=== PATIENT | male | born 1965 | race Caucasian/White ===

== ENCOUNTER 2017-05-28 07:35 | Outpatient (CLI) | payer OTHER ==
[2017-05-28] MEDS ORDERED: Iopamidol 370 76% 100 ML VIAL ONE (09:00)
--- NOTE | 2017-05-28 12:28 | CT ---
CT OF CHEST PERFORMED WITH INTRAVENOUS CONTRAST ENHANCEMENT CT OF ABDOMEN AND PELVIS PERFORMED WITH INTRAVENOUS CONTRAST ENHANCEMENT: History: Rectal cancer. History of colon resection and partial resection of the liver. Comparison: 11-25-16 CT examination that was done at [facility]. Review is also made of a 08-15-14 PE T scan. FINDINGS: The lungs are clear of any infiltrative process. A left lower lobe pulmonary nodule seen on the previ ous examination is now a barely perceptible area of ground glass opacity. There are no pleural effusi ons. There is no significant mediastinal or hilar lymphadenopathy. CT OF ABDOMEN PERFORMED WITH INTRAVENOUS CONTRAST ENHANCEMENT: There has been interval improvement in the appearance of the liver masses. The patient has had resect ion of a large portion of the right lobe of the liver. There are masses within the residual liver par enchyma which definitely show a decrease in size. One of the best examples of this lesion is along th e margin of the resection a lesion measured approximately 3 cm in size now measures 1.4 cm in greates t dimension. Two low attenuation areas of mass-like areas, one within the region of the falciform lig ament and one adjacent to the resected portion of the liver are again noted. They have central areas of nodularity which appears to be at least a portion of calcification. There could be some enhancemen t. No noncontrast CT was performed. The area adjacent to the resection is significantly smaller. It m easured 3 cm on the prior exam and now measures 1.8 cm. The area in the falciform ligament region is unchanged. Addition lesion which was seen in the lateral segment of the left lobe of the liver is bar alessio even perceptible on today's study where it measured 2 cm in size on the prior examination, barely perceptible low attenuation area on axial image 57 is now seen. The spleen is enlarged. Pancreas reg ion appears unremarkable. Gallbladder appears to have been removed. Right and left adrenal glands and right and left kidneys are normal in size. There are small subcenti meter periaortic lymph nodes, not significantly changed since the prior examination. Post-operative c hanges are seen along the right side of the abdomen. There is no significant pelvic lymphadenopathy o r mass. The prostate is enlarged. Review of osseous structures showed no lytic or blastic bony change. IMPRESSION: Overall interval improvement. A left lower lobe pulmonary nodule seen on the prior examination is ba rely perceptible and the liver lesions show a definite decrease in size as compared to the prior exam . POS: H
== END 2017-05-28 07:36 | disposition home or self-care (01) ==
LOC: SCSCT 07:35
PROVIDERS: ATTEND Internal Medicine Hematology & Oncology
DX: C19 Malignant neoplasm of rectosigmoid junction (principal); C78.00 Secondary malignant neoplasm of unspecified lung; C22.9 Malignant neoplasm of liver, not specified as primary or secondary; R91.8 Other nonspecific abnormal finding of lung field
CPT/HCPCS: 71260; 74177

== ENCOUNTER 2017-06-09 19:36 | Inpatient (IN) | payer OTHER ==
[2017-06-09] MEDS ORDERED: Ondansetron PF 4 MG/2 ML Vial ONE (20:03)
--- NOTE | 2017-06-09 20:30 | RAD ---
FRONTAL RADIOGRAPH CHEST TWO VIEWS ABDOMEN 06/09/17 COMPARISON: 09/27/15 HISTORY: Nausea, vomiting, and chills. FINDINGS: Stable left sided CT injectable Port-A-Cath present. No pneumothorax, pleural fluid, focal consolidat ion or alveolar edema. Upright imaging demonstrates no free intraperitoneal air. There is a postoperative suture line in the mid right abdomen. There are scattered dilated gas filled loops of small bowel, measuring up to 5-5.5 cm in the mid righ t abdomen. Air fluid levels are noted within dilated small bowel on upright imaging. Findings suggest s small bowel obstruction or ileus. There is prominent degenerative change involving the right hip. IMPRESSION: Dilated small bowel within the central abdomen with air fluid levels on upright imaging suggesting sm all bowel obstruction and/or ileus. Followup radiographs following treatment to document resolution a dvised. POS: [facility]
[2017-06-09 20:48] LABS: #Lymphocytes 0.6 thou/uL (1.20-3.40); #Monocytes 0.5 thou/uL (0.11-0.59); #Neutrophils 4.5 thou/uL (1.40-6.50); %Basophils 0.5 % (0.0-1.0); %Eosinophils 0.7 % (0.0-10.0); %Lymphocytes 10.3 % (21.0-51.0); %Monocytes 8.6 % (0.0-10.0); Hemoglobin 14.5 g/dL (14.0-18.0); Mean Corpuscular HGB CONC 34.9 g/dL (32.0-36.0); Mean Corpuscular Hemoglobin 32.3 pg (27.0-31.0); Mean Corpuscular Volume 92.5 fl (80.0-94.0); Mean Platelet Volume 6.8 fL (7.4-10.4); Platelet Count 132 thou/uL (130-400); RBC Distribution Width 15.5 % (11.5-14.5); Red Blood Cell (RBC) Count 4.49 mill/uL (4.70-6.10); White Blood Cell (WBC) Count 5.7 thou/uL (4.8-10.8)
[2017-06-09 21:04] LABS: ALT (SGPT) 72 U/L (8-55); AST (SGOT) 57 U/L (5-34); Albumin 4.5 g/dL (3.5-5.0); Alkaline Phosphatase 189 U/L (40-150); Anion Gap 17 mmol/L (10-20); BUN (Urea Nitrogen) 13 mg/dL (8.9-20.6); Bilirubin, Total 1.7 mg/dL (0.2-1.2); Calc. Creatinine Clearance 0 mL/min (70-130); Calcium 10.3 mg/dL (7.8-10.44); Carbon Dioxide 23 mmol/L (22-29); Chloride 104 mmol/L (98-107); Estimated GFR-MDRD Greater than 90; Globulin 3.2 g/dL (2.4-3.5); Glucose 110 mg/dL (70-105); Lipase 10 U/L (8-78); Potassium 3.9 mmol/L (3.5-5.1); Protein, Total 7.7 g/dL (6.0-8.3); Sodium 140 mmol/L (136-145)
[2017-06-09] MEDS ORDERED: Benzocaine 20% Spray 60 ML CAN ONE (21:54)
[2017-06-09] MEDS ORDERED: Oxymetazoline HCl 0.05% ( 15 ML ) ONE (21:54)
[2017-06-09] MEDS ORDERED: Ondansetron ODT 4 MG TAB SL PRN (23:53)
[2017-06-09] MEDS ORDERED: Acetaminophen 325 MG TAB PO PRN (23:53)
[2017-06-09] MEDS ORDERED: Ondansetron PF 4 MG/2 ML Vial IVP PRN (23:53)
[2017-06-10] MEDS ORDERED: Chloraseptic Spray 180 ml Bottle PO PRN (00:07)
[2017-06-10] MEDS: Sodium Chloride 0.9% 1,000 ML IV SCH ×4 (00:19→20:30)
[2017-06-10 04:27] VITALS: BMI 20.5
[2017-06-10 04:27] LABS: INR-International Normal Ratio 1.2; PTT 30.7 SEC (22.9-36.1); Prothrombin Time 15.2 SEC (12.0-14.7)
[2017-06-10 04:35] LABS: #Lymphocytes 0.6 thou/uL (1.20-3.40); #Monocytes 0.4 thou/uL (0.11-0.59); #Neutrophils 2.9 thou/uL (1.40-6.50); %Basophils 0.2 % (0.0-1.0); %Eosinophils 0.2 % (0.0-10.0); %Lymphocytes 14.8 % (21.0-51.0); %Monocytes 10.9 % (0.0-10.0); %Neutrophils 73.9 % (42.0-75.0); Hemoglobin 13.5 g/dL (14.0-18.0); Mean Corpuscular HGB CONC 34.7 g/dL (32.0-36.0); Mean Corpuscular Hemoglobin 34.4 pg (27.0-31.0); Mean Corpuscular Volume 99.1 fl (80.0-94.0); Platelet Count 95 thou/uL (130-400); RBC Distribution Width 15.9 % (11.5-14.5); Red Blood Cell (RBC) Count 3.92 mill/uL (4.70-6.10); White Blood Cell (WBC) Count 3.9 thou/uL (4.8-10.8)
[2017-06-10 04:50] LABS: ALT (SGPT) 55 U/L (8-55); AST (SGOT) 48 U/L (5-34); Albumin 4.1 g/dL (3.5-5.0); Alkaline Phosphatase 184 U/L (40-150); Anion Gap 11 mmol/L (10-20); BUN (Urea Nitrogen) 12 mg/dL (8.9-20.6); Bilirubin, Total 1.7 mg/dL (0.2-1.2); Calc. Creatinine Clearance 111 mL/min (70-130); Calcium 9.2 mg/dL (7.8-10.44); Carbon Dioxide 25 mmol/L (22-29); Chloride 108 mmol/L (98-107); Estimated GFR-MDRD Greater than 90; Globulin 2.8 g/dL (2.4-3.5); Glucose 101 mg/dL (70-105); Potassium 3.9 mmol/L (3.5-5.1); Protein, Total 6.9 g/dL (6.0-8.3); Sodium 140 mmol/L (136-145)
[2017-06-10] MEDS: Acetaminophen 1,000 MG in Premix Bag 1 BAG IVPB PRN ×3 (07:52→21:55)
--- NOTE | 2017-06-10 10:32 | HP ---
DATE OF CONSULTATION: 06/10/2017 CHIEF COMPLAINT: Small-bowel obstruction. HISTORY OF PRESENT ILLNESS: This is a 51-year-old male who presents with a history of metastatic rec nadege cancer, status post low anterior resection with temporary diverting ileostomy, laparoscopic in [facility] followed by partial hepatectomy for metastatic disease. He still has active meta static disease in his abdomen. He presents after having had nausea, vomiting overnight, admitted to my service for presumed small bowel obstruction. The patient had just a CAT scan 2 weeks ago, so CT was not repeated. His labs are all within normal limits. His plain film of his abdomen revealed on e appearing dilated loop of intestine. His CT scan 2 weeks ago showed persistence although smaller o f his hepatic metastatic disease. The patient did note a few normal bowel movements yesterday. He f eels better this morning, had an NG tube placed overnight. He denies a history of blood per rectum r ecently. He denies pain with bowel movements below. No history of anastomotic stricture. He has no t had lower endoscopy since his procedure. MEDICAL HISTORY: Colon cancer metastatic. SURGICAL HISTORY: As above. MEDICINE: Capecitabine. ALLERGIES: No known drug allergies. SOCIAL HISTORY: No smoking, alcohol or other drugs. He is . Ten system review of systems ot herwise negative unless described above. PHYSICAL EXAMINATION: VITAL SIGNS: Blood pressure is 143/84, pulse 75, respirations 15. HEENT: Sclerae are anicteric. Oropharynx clear. NECK: No lymphadenopathy. CHEST: Clear. HEART: Regular rate and rhythm. ABDOMEN: Soft, it is nontender, and nondistended. There are occasional bowel sounds. Well healed r ight lower quadrant incision, laparoscopic incisions as well as right subcostal incision without jocelyne ias. No inguinal hernias. LABORATORY DATA AND IMAGING DATA: White blood cell count is 3.9, hemoglobin 13, platelet count is 95 . Sodium 140, potassium 3.9, creatinine 0.75, bilirubin 1.7, AST and ALT are 48 and 55, alkaline ida sphatase 184. Plain film abdomen last night, dilated small bowel in the central abdomen with few air fluid levels. ASSESSMENT: 1. Likely partial small-bowel obstruction. 2. History of metastatic rectal cancer with persistent known metastatic disease to liver, although t umor burden less on recent CT scan. PLAN: NG tube has decompressed them, he feels better. He is not passing gas, has not had a bowel mo vement, but his abdomen is soft and nontender. Plan Gastrografin small bowel follow through today.
[2017-06-10] MEDS ORDERED: Morphine 4 MG/ML Carpuject IVP PRN (11:22)
[2017-06-10] MEDS ORDERED: Acetaminophen 1,000 MG in Premix Bag 1 BAG IVPB PRN (11:23)
[2017-06-10] MEDS: Ondansetron PF 4 MG/2 ML Vial IVP PRN (12:58)
--- NOTE | 2017-06-10 15:59 | CON ---
DATE OF CONSULTATION: 06/10/2017 REASON FOR CONSULTATION: Rectal cancer. HISTORY OF PRESENT ILLNESS: Mr. Fatima is a pleasant 51-year-old male well known to our ser vice who is undergoing treatment for metastatic rectal cancer with Xeloda and Avastin. He presented to the emergency department here with acute onset of abdominal pain, nausea, and vomiting. He had an NG tube placed and is currently undergoing a small bowel follow through. The patient was diagnosed in early 2014 and has undergone multiple surgeries including a right hepatectomy, wedge resection of the left hepatic lobe, radiofrequency ablation and cholecystectomy. He has had ostomy with reanastom osis. He has been doing well with Xeloda and Avastin with recent CT scan showing interval decrease i n the left lower lobe pulmonary nodule and liver lesions. His CEA has continued to drop since starti ng this treatment. Currently, he is having some nausea and mild abdominal discomfort. He denies any fever or chills. No shortness of breath or chest pain. His last dose of Avastin was on Thursday, 03/2018 and he was on day 7 of Xeloda prior to admission. PAST MEDICAL HISTORY: Metastatic moderately differentiated adenocarcinoma of the rectum. PAST SURGICAL HISTORY: Per HPI including MediPort placement. ALLERGIES: No known drug allergies. HOME MEDICATION: Capecitabine 500 mg 3 tabs b.i.d. FAMILY HISTORY: Patient's mother had stage I colon cancer. SOCIAL HISTORY: , has 2 children, lives with spouse. No alcohol, tobacco or illicit drug use . REVIEW OF SYSTEMS: Twelve point review of systems is negative except for noted in HPI. PHYSICAL EXAMINATION: VITAL SIGNS: Temperature 97.9, pulse is 74, respiratory rate 16, BP is 147/87, he is 99% on room air . GENERAL: This is a thin male in no acute distress. HEENT: Normocephalic, atraumatic. Pupils are equal and reactive to light. NECK: Supple. CARDIOVASCULAR: Regular rate and rhythm. LUNGS: Clear. ABDOMEN: Soft, nontender, hypoactive bowel sounds. EXTREMITIES: No clubbing, cyanosis or edema. SKIN: He has rash on his hands secondary to Xeloda. NEUROLOGIC: Nonfocal. PSYCHIATRIC: The patient is alert, oriented, and appropriate. PERTINENT LABORATORY DATA AND IMAGING DATA: Current WBCs are 3.9, hemoglobin 13.5, hematocrit 38.8, platelet count is 95,000, 74% neutrophils, 15% lymphocytes. PT is 15.2, INR is 1.2, and PTT is 30.7. Sodium is 140, potassium 3.9, chloride 108, CO2 is 25, BUN is 12, creatinine 0.75, lactic acid is 1 , calcium is 9.2, total bilirubin is 0.7, AST is 48, ALT 55, alkaline phosphatase is 184. Serum tota l protein is 6.9, albumin 4.1, globulin 2.8, and lipase is 10. Abdominal x-rays showed dilated small bowel. ASSESSMENT: 1. Metastatic rectal adenocarcinoma on Xeloda and Avastin chemotherapy. 2. Possible small-bowel obstruction. DISCUSSION: The patient has had an NG tube placed and is currently undergoing small bowel follow thr [facility]. Unfortunately, he recently vomited approximately [address] Renae is managing his small-bowel obstruction. His Xeloda has held while in this facility and we will monitor his CBC and follow closely. Should he need a surgical intervention, he would likely be transferred to his rgeon at [facility]. Thank you for the consult.
--- NOTE | 2017-06-10 16:12 | RAD ---
SMALL BOWEL FOLLOW THROUGH: History: Abnormal radiograph, preceding day, with history of emesis and abdominal pain, prior colon r esection. FINDINGS: Enteric contrast was administered via patient's indwelling enteric catheter and subsequent radiograph ic imaging was performed over a duration of six hours. There is abnormal dilatation of the small bowel diffusely. By six hours of imaging there is no eviden ce of contrast traversing into the colon. IMPRESSION: Radiographic findings which indicate high grade bowel obstruction. Recommend correlation with clinica l assessment. Telephone call to patient's physician, Cristy Renae, made at 1540 hours on 06-10-17. Code CR. POS: [facility]
[2017-06-10] MEDS ORDERED: Glycopyrrolate 0.2 MG/ML 5 ML SYRINGE ONE (16:44)
[2017-06-10] MEDS ORDERED: Lidocaine 1% PF 5 ML VIAL ONE (16:44)
[2017-06-10] MEDS ORDERED: PROPOFOL 200 MG/20 ML VIAL ONE (16:44)
[2017-06-10] MEDS ORDERED: Succinylcholine Chloride 20 MG/ML 10 ml SYRINGE FS ONE (16:44)
[2017-06-10] MEDS ORDERED: Ondansetron PF 4 MG/2 ML Vial ONE (16:44)
[2017-06-10] MEDS: Pantoprazole 40 MG VIAL IVP SCH (20:31)
[2017-06-11] MEDS: Sodium Chloride 0.9% 1,000 ML IV SCH ×3 (02:25→18:46)
[2017-06-11] MEDS: Acetaminophen 1,000 MG in Premix Bag 1 BAG IVPB PRN (04:54)
[2017-06-11] MEDS: Ondansetron PF 4 MG/2 ML Vial IVP PRN ×2 (04:55→09:20)
--- NOTE | 2017-06-11 08:12 | RAD ---
ABDOMEN 2 VIEWS: Date: 06/11/17 HISTORY: Small bowel obstruction. FINDINGS: No free air is seen. Postop changes are noted in the right upper quadrant and the pelvis. There is co ntrast in dilated loops of small bowel. No contrast is seen in the colon. Air fluid levels are seen. IMPRESSION: Findings indicative of high grade small bowel obstruction. POS: H
--- NOTE | 2017-06-11 10:36 | PDOC.GSPN ---
Surgery Progress Note: Subj - Subjective Narrative: No bowel function. SBFT showed high grade obstruction and there is no contrast in colon this am on KUB Surgery Progress Note: Obj - Vital signs Vital signs: Vital Signs - Most Recent Temp Pulse Resp BP Pulse Ox 97.8 F 71 14 146/84 H 99 06/11/17 07:45 06/11/17 07:45 06/11/17 07:45 06/11/17 07:45 06/11/17 07:45 - Physical Exam General: no distress Cardiovascular: regular rate and rhythm Respiratory: clear to auscultation Abdomen: soft, non tender, decreased bowel sounds, distended Surgery Progress Note: Results - Labs Result Diagrams: 06/10/17 03:40 06/10/17 03:40 Surgery Progress Note: A/P - Problem (1) Small bowel obstruction Current Visit: Yes Code(s): K56.609 - UNSP INTESTNL OBST, UNSP TO PARTIAL VERSUS COMPLETE OBST Status: Acute Assessment and Plan: Plan laparoscopic lysis of adhesions today
[2017-06-11] MEDS ORDERED: Fentanyl 100 MCG/2 ML VIAL ONE ×3 (11:53→13:57)
[2017-06-11] MEDS ORDERED: Bupivacaine 0.25% HCL 30 ML VIAL ONE (12:26)
[2017-06-11] MEDS ORDERED: Lidocaine 2% w/Epinephrine 1:200K 20 ML VIAL ONE (12:26)
[2017-06-11] MEDS ORDERED: CEFAZOLIN/Water 2 GM/20 ML SYRINGE ONE (12:35)
[2017-06-11] MEDS ORDERED: Promethazine HCl 25 MG/ML VIAL SLOW IVP PRN (15:29)
[2017-06-11] MEDS ORDERED: Ondansetron HCl/PF 4 MG/2 ML Vial IVP PRN (15:29)
[2017-06-11] MEDS ORDERED: Promethazine HCl 25 MG/ML VIAL IM PRN (15:29)
[2017-06-11] MEDS ORDERED: Morphine Sulfate 2 MG/ML SYRINGE SLOW IVP PRN (15:29)
[2017-06-11] MEDS ORDERED: Fentanyl 100 MCG/2 ML VIAL SLOW IVP PRN (16:36)
[2017-06-11] MEDS ORDERED: Acetaminophen 1,000 MG in Premix Bag 1 BAG IVPB PRN (16:36)
[2017-06-11] MEDS: Fentanyl 100 MCG/2 ML VIAL SLOW IVP PRN ×3 (17:05→22:02)
[2017-06-11] MEDS: Ketorolac Tromethamine 30 MG/ML VIAL IVP PRN (18:47)
[2017-06-11] MEDS: Pantoprazole 40 MG VIAL IVP SCH (20:22)
[2017-06-12] MEDS: Fentanyl 100 MCG/2 ML VIAL SLOW IVP PRN ×10 (00:28→21:09)
[2017-06-12] MEDS: Sodium Chloride 0.9% 1,000 ML IV SCH ×3 (02:47→17:09)
[2017-06-12 06:19] LABS: #Lymphocytes 0.3 thou/uL (1.20-3.40); #Monocytes 0.4 thou/uL (0.11-0.59); #Neutrophils 2.8 thou/uL (1.40-6.50); %Basophils 0.5 % (0.0-1.0); %Eosinophils 0.1 % (0.0-10.0); %Lymphocytes 8.4 % (21.0-51.0); %Monocytes 11.6 % (0.0-10.0); %Neutrophils 79.3 % (42.0-75.0); Hemoglobin 11.6 g/dL (14.0-18.0); Mean Corpuscular HGB CONC 33.6 g/dL (32.0-36.0); Mean Corpuscular Hemoglobin 33.6 pg (27.0-31.0); Mean Platelet Volume 7.1 fL (7.4-10.4); Platelet Count 73 thou/uL (130-400); Red Blood Cell (RBC) Count 3.46 mill/uL (4.70-6.10); White Blood Cell (WBC) Count 3.5 thou/uL (4.8-10.8)
[2017-06-12 06:47] LABS: Anion Gap 8 mmol/L (10-20); BUN (Urea Nitrogen) 20 mg/dL (8.9-20.6); Calc. Creatinine Clearance 117 mL/min (70-130); Calcium 8.4 mg/dL (7.8-10.44); Carbon Dioxide 27 mmol/L (22-29); Chloride 112 mmol/L (98-107); Estimated GFR-MDRD Greater than 90; Glucose 119 mg/dL (70-105); Potassium 3.9 mmol/L (3.5-5.1); Sodium 143 mmol/L (136-145)
--- NOTE | 2017-06-12 09:42 | OP ---
DATE OF SERVICE: 06/10/2017 PREOPERATIVE DIAGNOSIS: High grade small-bowel obstruction. POSTOPERATIVE DIAGNOSIS: High grade small-bowel obstruction. PROCEDURE: Exploratory laparotomy, lysis of intestinal adhesions. SURGEON: Stanislaw Renae M.D. ANESTHESIA: General. ESTIMATED BLOOD LOSS: Minimal. COMPLICATIONS: None. FINDINGS: Distal small bowel adhesions causing complete obstruction. TECHNIQUE: The patient was taken to the operating room and placed supine on the table. After genera l anesthetic was obtained, the abdomen was shaved, prepped and draped in a sterile fashion. Incision was made below the umbilicus. Cautery was used to dissect down to and score the fascia. Abdominal cavity entered bluntly using a Syeda clamp. A 5 mm laparoscopic sleeve trocar was placed and high-fl ow pneumoperitoneum was obtained. Left abdominal 5 mm ports were placed. High-flow pneumoperitoneum was obtained. The patient had obvious distal small-bowel obstruction. There were a few adhesions t o the posterior abdominal wall that were easily taken laparoscopic; however, there were some deep adh esions down in the distal small bowel that could not be accessed laparoscopic, so the decision was ma de to open. Midline incision was made. Cautery dissected down into the abdominal cavity. The dista l small bowel adhesions causing a complete 360 twists were taken down. There was no evidence of jose angel ge or ischemia to the intestine in this area. In the area where the small bowel adhesions were taken down, there was some deserosalization. There was some serosal tears, they were oversewn using silk pop off. Small bowel was then run proximal to the ligament of Treitz and distal to the ileocecal mariama ve without evidence of further obstruction. The intestine was placed back in the abdominal cavity in normal orientation. All instrument counts, needle counts, and lap counts were correct. PDS was use d to close the fascial defect from the top and the bottom and tied in the middle. Subcutaneous tissu es were used to irrigate the subcu tissues and the skin was closed using 3-0 Vicryl, 4-0 Monocryl, an d Dermabond. The patient was en route to recovery in stable condition. All instrument counts, needl e counts, and lap counts were correct.
--- NOTE | 2017-06-12 14:12 | PDOC.GSPN ---
Surgery Progress Note: Subj - Subjective Narrative: His severe pain is gone Surgery Progress Note: Obj - Vital signs Vital signs: Vital Signs - Most Recent Temp Pulse Resp BP Pulse Ox 98.2 F 68 16 126/77 100 06/12/17 11:35 06/12/17 11:35 06/12/17 11:35 06/12/17 11:35 06/12/17 11:35 - Physical Exam General: no distress Cardiovascular: regular rate and rhythm Respiratory: clear to auscultation Abdomen: soft, decreased bowel sounds, appropriately tender Wound: healing well Surgery Progress Note: Results - Labs Result Diagrams: 06/12/17 06:09 06/12/17 06:09 Lab results: Laboratory Results - last 24 hr 06/12/17 06/12/17 06:09 06:09 WBC 3.5 L RBC 3.46 L Hgb 11.6 L Hct 34.6 L MCV 100.0 H MCH 33.6 H MCHC 33.6 RDW 16.0 H Plt Count 73 L MPV 7.1 L Neutrophils % 79.3 H Neutrophils % (Manual) Not Reportable Lymphocytes % 8.4 L Monocytes % 11.6 H Eosinophils % 0.1 Basophils % 0.5 Neutrophils # 2.8 Lymphocytes # 0.3 L Monocytes # 0.4 Eosinophils # 0.0 Basophils # 0.0 Sodium 143 Potassium 3.9 Chloride 112 H Carbon Dioxide 27 Anion Gap 8 L BUN 20 Creatinine 0.71 Estimated GFR (MDRD) Greater than 90 Glucose 119 H Calcium 8.4 Surgery Progress Note: A/P - Problem (1) Small bowel obstruction Current Visit: Yes Code(s): K56.609 - UNSP INTESTNL OBST, UNSP TO PARTIAL VERSUS COMPLETE OBST Status: Acute Assessment and Plan: POD 1 lysis of adhesions. Try clamping trial NG
[2017-06-12] MEDS: Pantoprazole 40 MG VIAL IVP SCH (21:08)
[2017-06-12] MEDS: Enoxaparin Sodium 40 MG/0.4 ML SYRINGE SC SCH (21:10)
[2017-06-13] MEDS: Fentanyl 100 MCG/2 ML VIAL SLOW IVP PRN ×2 (00:38→02:43)
[2017-06-13] MEDS: Sodium Chloride 0.9% 1,000 ML IV SCH ×2 (04:37→14:58)
[2017-06-13] MEDS: Ketorolac Tromethamine 30 MG/ML VIAL IVP PRN ×3 (05:16→21:31)
[2017-06-13] MEDS ORDERED: traMADol HCl 50 MG TAB PO PRN (14:53)
[2017-06-13] MEDS ORDERED: Ibuprofen 600 MG TAB PO PRN (14:53)
[2017-06-13] MEDS ORDERED: Acetaminophen 500 MG TAB PO PRN (14:53)
--- NOTE | 2017-06-13 15:07 | PRG ---
DATE OF SERVICE: 06/13/2017 SUBJECTIVE: Duy Fatima is 1 day status post laparotomy for bowel obstruction. He had limited adhes iolysis required. The patient tolerated clear liquids this morning. He has had flatus. He is not h aving nausea, vomiting or abdominal distention. OBJECTIVE: VITAL SIGNS: 97.9, 75, 118/74. There are no laboratories this morning. LUNGS: Clear to auscultation. CARDIAC: Regular rate and rhythm without murmur or gallop. ABDOMEN: Soft, nontender, nondistended, bowel sounds present. Surgical wound looks good. ASSESSMENT AND PLAN: Recovering from laparotomy, adhesiolysis limited. We will plan advancement of his diet to regular food, most likely discharged home tomorrow. We will discontinue his [place], salin e lock and discontinue his IV fluids. Resume his home medications and established a nonnarcotic oral analgesics.
[2017-06-13] MEDS: traMADol HCl 50 MG TAB PO PRN (18:39)
[2017-06-13] MEDS ORDERED: CAPECITABINE PO SCH (21:00)
[2017-06-13] MEDS: Enoxaparin Sodium 40 MG/0.4 ML SYRINGE SC SCH (21:22)
[2017-06-14] MEDS: traMADol HCl 50 MG TAB PO PRN (00:38)
[2017-06-14] MEDS: Ketorolac Tromethamine 30 MG/ML VIAL IVP PRN ×2 (06:15→11:33)
[2017-06-14] MEDS ORDERED: Polyethylene Glycol 3350 17 GM Packet PO SCH (09:00)
[2017-06-14 12:29] VITALS: BP 128/81; TEMP 97.5
--- NOTE | 2017-06-14 16:47 | PRG ---
DATE OF SERVICE: 06/14/2017 SUBJECTIVE: Mr. Duy Fatima is doing well today. He is tolerating his diet. He is eating well. He has been saline locked. Bowel function is good with bowel movements and flatus. OBJECTIVE: LUNGS: Clear to auscultation. CARDIAC: Regular rate and rhythm without murmur or gallop. ABDOMEN: Soft, nontender. Surgical wound looks good. ASSESSMENT: he will recover GI function after adhesiolysis. PLAN: Discharge home with Ultram, Tylenol, Motrin p.r.n. pain. Follow up with Dr. Renae in 2-3 we eks. Diet and activity as tolerated. No lifting over 25 pounds for 6 weeks.
== END 2017-06-14 14:30 | disposition home or self-care (01) | DRG 336 ==
LOC: SCSER 19:36 → SURG B 21:45
PROVIDERS: ADMIT Surgery; ATTEND Surgery
PROC: 0DN80ZZ Release Small Intestine, Open Approach (ICD-10-PCS; principal; 2017-06-10)
PROC: 0WJP4ZZ Inspection of Gastrointestinal Tract, Percutaneous Endoscopic Approach (ICD-10-PCS; 2017-06-10)
PROC: 3E0T3BZ Introduction of Anesthetic Agent into Peripheral Nerves and Plexi, Percutaneous Approach (ICD-10-PCS; 2017-06-10)
PROC: 3E0T33Z Introduction of Anti-inflammatory into Peripheral Nerves and Plexi, Percutaneous Approach (ICD-10-PCS; 2017-06-10)
DX: K56.52 Intestinal adhesions [bands] with complete obstruction (principal); C20 Malignant neoplasm of rectum; C78.7 Secondary malignant neoplasm of liver and intrahepatic bile duct; C79.89 Secondary malignant neoplasm of other specified sites; Z98.890 Other specified postprocedural states; Z92.21 Personal history of antineoplastic chemotherapy; Z95.828 Presence of other vascular implants and grafts; Z90.49 Acquired absence of other specified parts of digestive tract
CPT/HCPCS: 74019; 74022; 74250; 80048; 80053; 83605; 83690; 85025; 85610; 85730; 96361; 96372; 96374; C9113; J0131; J1642; J1650; J1885; J2001; J2270; J2405; J2704; J3010; S0020

== ENCOUNTER 2017-10-13 07:58 | Outpatient (CLI) | payer OTHER ==
--- NOTE | 2017-10-13 12:33 | CT ---
CHEST CT WITH IV CONTRAST ABDOMEN AND PELVIC CT WITH IV CONTRAST: History: 51-year-old male with history of rectal cancer with liver and lung metastasis. Patient on chemotherap y. History of liver resection and cholecystectomy with prior rectal and colon resection and ileostomy reversal. Comparison: 05-28-17 FINDINGS: There is a 0.5 cm diameter pulmonary nodule in the left lower lobe which is slightly better demonstra yun than on the most recent 05-28-17 study, but this may just be related to slight differences in slice position. It certainly smaller than on the prior 11-25-16 study. Multiple low attenuation metastatic f oci are noted within the liver, all of which appear to be stable when compared to the prior study and improved from the 11-25-16 study. Status post partial hepatectomy and cholecystectomy. Stable borderli ne splenomegaly. No evidence for adenopathy, abscess, or abnormal fluid collection within the abdomen or pelvis. Stable lumbar spine spondylosis with pars defects at L5. No mediastinal mass or adenopath y. No pleural effusion. IMPRESSION: Although the left lower lobe pulmonary nodule is slightly better seen on today's study than on the recent study from 05-28-17, I do not think it has significantly changed in size or show any growth. Liver metastasis are stable. Stable borderline splenomegaly. No evidence for new metastatic foci. POS: [facility]
[2017-10-13] MEDS ORDERED: Iopamidol 370 76% 100 ML VIAL ONE (13:05)
[2017-10-13] MEDS ORDERED: Iopamidol 370 76% 50 ML VIAL FS ONE (13:05)
== END 2017-10-13 07:59 | disposition home or self-care (01) ==
LOC: CT 07:58
PROVIDERS: ATTEND Internal Medicine Hematology & Oncology
DX: C20 Malignant neoplasm of rectum (principal); C78.7 Secondary malignant neoplasm of liver and intrahepatic bile duct; R91.1 Solitary pulmonary nodule
CPT/HCPCS: 71260; 74177

== ENCOUNTER 2018-02-04 07:48 | Outpatient (CLI) | payer OTHER ==
[2018-02-04] MEDS ORDERED: Iopamidol 370 76% 100 ML VIAL ONE (09:00)
--- NOTE | 2018-02-04 12:30 | CT ---
CT CHEST WITH CONTRAST CT ABDOMEN AND PELVIS WITH CONTRAST: COMPARISON: 10/13/2017. INDICATION: History of rectal cancer, followup imaging. FINDINGS: A 7 mm noncalcified pulmonary nodule of the medial aspect of the left lower lobe has increased in vol ume, measuring 7 mm, compared to 5 mm on prior exam. A 6 mm pulmonary nodule of the right middle lob e has also increased, now measuring 6 mm. There is additional multifocal punctate subpleural nodular ity of the lungs, too small to definitively characterize. There is no pleural effusion. Within the abdomen, there is evidence of prior partial hepatotectomy again seen. There is stable multifocal hyp oattenuation with internal calcification of the residual, postoperative hepatic parenchyma. There is mild prominence of the right renal pelvis. Kidneys are otherwise unremarkable. There is no interva l adrenal mass seen. Spleen remains prominent in volume. There is postoperative suture of the recto sigmoid colon again demonstrated. The bowel in this region is incompletely evaluated as it is not co ntrast opacified and is decompressed. There is moderate distention of the unopacified urinary bladde r. Contrast-opacified small bowel loops are normal in caliber. No interval acute osseous destructiv e lesion. IMPRESSION: Interval size progression of bilateral pulmonary nodules indicative of metastatic disease. Dominant nodule measures approximately 7 mm, below size for PET resolution. Therefore, recommend continued im aging followup with CT in 3 months for continued short-term followup. POS: [facility]
== END 2018-02-04 07:49 | disposition home or self-care (01) ==
LOC: SCSCT 07:48
PROVIDERS: ATTEND Internal Medicine Hematology & Oncology
DX: Z51.11 Encounter for antineoplastic chemotherapy (principal); C20 Malignant neoplasm of rectum; R11.2 Nausea with vomiting, unspecified; R97.8 Other abnormal tumor markers; R91.8 Other nonspecific abnormal finding of lung field
CPT/HCPCS: 71260; 74177

== ENCOUNTER 2018-05-14 07:40 | Outpatient (CLI) | payer OTHER ==
[2018-05-14] MEDS ORDERED: Iopamidol 370 76% 100 ML VIAL ONE (09:00)
--- NOTE | 2018-05-14 15:28 | CT ---
CHEST, ABDOMEN, AND PELVIC CT SCAN WITH IV CONTRAST: History: C20 - malignant neoplasm rectum. Nausea, vomiting. Comparison: 02-04-18 FINDINGS: Again noted is somewhat poorly circumscribed nodule in the right middle lobe measuring 0.6 cm as well as a somewhat poorly circumscribed nodule in the left lower measuring 0.8 cm in size. Both of these are stable when compared to 02-04-18. Stable linear right lower lobe pleural based density. No medias tinal mass or adenopathy. No pleural effusion or pericardial effusion. Post op changes in the liver w ith multiple stable low attenuation masses with central calcification. Stable minimal splenomegaly. V isualized pancreas and adrenal glands are unremarkable. No renal calculus or acute obstruction. Po st op changes in the region of the distal ileum. Stable bilateral pars defects at L5-S1 with mild ant erolisthesis. No evidence for abdominal or pelvic adenopathy. No abscess or abnormal fluid collection . Lumbar spine spondylosis and considerable degenerative arthrosis changes of both hips joints, worse on the right side. No evidence for bone metastasis. IMPRESSION: Stable right middle lobe and left lower lobe poorly circumscribed nodules. Continued short term follo w up. Stable post op changes involving the liver with multiple stable circumscribed hypodense masses with central calcification. Stable mild splenomegaly. No evidence for acute process. POS: [facility]
== END 2018-05-14 07:41 | disposition home or self-care (01) ==
LOC: SCSCT 07:40
PROVIDERS: ATTEND Internal Medicine Hematology & Oncology
DX: C20 Malignant neoplasm of rectum (principal); R91.8 Other nonspecific abnormal finding of lung field; R16.1 Splenomegaly, not elsewhere classified; R16.0 Hepatomegaly, not elsewhere classified; K76.89 Other specified diseases of liver; Z98.890 Other specified postprocedural states
CPT/HCPCS: 71260; 74177

== ENCOUNTER 2018-09-03 07:56 | Outpatient (CLI) | payer OTHER ==
[2018-09-03] MEDS ORDERED: Iopamidol 370 76% 100 ML VIAL ONE (09:00)
--- NOTE | 2018-09-03 11:59 | CT ---
CT CHEST AND ABDOMEN AND PELVIS WITH IV CONTRAST: Multiple axial tomograms were obtained through the chest, abdomen, and pelvis with IV enhancement. O ral contrast was administered. INDICATION: Rectal cancer. Followup. COMPARISON: Comparison is made to CT chest, ad, and pelvis 05/14/2018. FINDINGS: CT CHEST: Lungs are well aerated. No infiltrate or effusion. The 6-7 mm nodule in the right middle lobe is again seen and is stable. The previously described 8 mm nodule in the left lower lobe medially is unchanged in size and appeara nce. The tiny 3-4 mm nodule peripheral left mid lung along the fissure is stable. Stranding in the posterior right lower lobe which extends to the pleural surface is stable. Mediastinum is unremarkable. No adenopathy. No evidence of axillary adenopathy. The osseous struct ures are unremarkable. IMPRESSION: Stable chest findings as described above. CT ABDOMEN AND PELVIS WITH CONTRAST: The low-density liver lesions are again noted. There is a 3 cm low-density lesion with central calci fication in the mid left lobe along the falciform ligament which appears stable. There is a low-density lesion with central calcification lateral margin upper right lobe abutting the diaphragm. This lesion is slightly more prominent today. It measures approximately 3.0 x 2.5 cm in the coronal plane where previous measurements were 2.3 x 2.0 cm. Another low-density lesion along the lateral margin of the liver superiorly abutting the diaphragm wi th central calcification measures 3.8 x 2.2 cm in the axial plane and appears stable. There is a low-density lesion in the lower right lobe of the liver seen on image 70 of axial which is measured at approximately 1.5 cm in the coronal plane. This lesion is slightly larger and more prom inent today. Splenomegaly is again seen and this appears stable. Left adrenal gland appears normal. The right adrenal gland is not well delineated but shows no inter mariama change. Kidneys unremarkable and stable. Urinary bladder is distended and unremarkable. Small bowel loops are normal caliber. Colon unremarkable. Radiopaque suture is seen at the rectum w ith no interval change apparent. Aorta normal caliber. No adenopathy identified. Osseous structures show moderately severe degenerative change at the right hip and mild to moderate degenerative change at the left hip. No focal osseous lesion. IMPRESSION: 1. Question increase in size in 2 of the liver lesions as described above. 2. CT abdomen and pelvis otherwise stable. POS: [facility]
== END 2018-09-03 07:57 | disposition home or self-care (01) ==
LOC: SCSCT 07:56
PROVIDERS: ATTEND Internal Medicine Hematology & Oncology
DX: C19 Malignant neoplasm of rectosigmoid junction (principal)
CPT/HCPCS: 71260; 74177; Q9967

== ENCOUNTER 2018-11-05 08:27 | Outpatient (CLI) | payer OTHER ==
[2018-11-05] MEDS ORDERED: Iopamidol 300 61% 100 ML VIAL FS ONE (09:00)
--- NOTE | 2018-11-05 10:14 | CT ---
EXAM: Chest, Abdomen and Pelvic CT scan EXAM: Chest, Abdomen and Pelvic CT scan EXAM: Chest, Abdomen and Pelvic CT scan with contrast: HISTORY: Rectal malignancy. COMPARISON: 09/03/2018. FINDINGS: Stable small, linear oriented nodular density at the anterolateral left lower lobe, approximately 5 m m. 6 mm right middle lobe nodule is stable. 7 mm nodule of medial left lower lobe is grossly stable. No pleural effusion. No pneumothorax. No adenopathy. No acute process of the mediastinal structures. Liver: Multifocal hypodense masses with associated calcification are redemonstrated within the residu al liver, grossly stable in volume, with the dominant size lesion previously measured at 3.7 cm in length demonstrating a stable size. Gallbladder:Surgically absent. Pancreas:Unremarkable. Spleen:Stable in appearance. Adrenal glands:Stable in appearance. Kidneys:No renal calculus or acute obstruction.No solid or cystic mass. Bowel: Limited evaluation of bowel without enteric contrast. There are scattered areas of suture mate rial related to prior surgery. Urinary Bladder: The urinary bladder is unremarkable. Adenopathy:No adenopathy within the abdomen or pelvis. Free Air: No free air. Ascites: No ascites. Osseous structures: No acute osseous abnormalities. IMPRESSION: 1. Stable multifocal hypodense partially calcified hepatic lesions. 2. Stable multiple bilateral pulmonary nodules. Transcribed Date/Time: 11/05/2018 10:25 AM
== END 2018-11-05 08:28 | disposition home or self-care (01) ==
LOC: SCSCT 08:27
PROVIDERS: ATTEND Internal Medicine Hematology & Oncology
DX: C20 Malignant neoplasm of rectum (principal); K76.9 Liver disease, unspecified; R91.8 Other nonspecific abnormal finding of lung field
CPT/HCPCS: 71260; 74177; Q9967

== ENCOUNTER 2019-02-03 08:29 | Outpatient (CLI) | payer OTHER ==
[2019-02-03] MEDS ORDERED: Iopamidol 370 76% 100 ML VIAL ONE (09:00)
--- NOTE | 2019-02-03 10:04 | CT ---
EXAM: CT of the chest with contrast CT of the abdomen and pelvis with contrast HISTORY: Malignant neoplasm of the rectum COMPARISON: 11/05/2018 TECHNIQUE: 1. Multiple contiguous axial images were obtained in a CT the chest with contrast. Coronal and sagitt al reformats were performed. 2. Multiple contiguous axial images were obtained and a CT of the abdomen and pelvis with contrast. C oronal and sagittal reformats were performed. FINDINGS: CT CHEST: HEART: Normal in size without focal cardiac abnormality MEDIASTINUM: No hilar or mediastinal lymphadenopathy. LUNGS: There is a stable 7 mm nodule in the right middle lobe. There is a stable 8 mm nodule in the l eft lower lobe. No new pulmonary nodules are seen. PLEURAL SPACE: No pneumothorax or pleural effusion. CHEST WALL SOFT TISSUES: There is a left subclavian Mediport with its tip in the superior vena cava. CT ABDOMEN/PELVIS: ABDOMEN: LIVER: The patient has had resection of the right lobe of the liver. There are stable areas of hypode nsity in the liver with central calcifications. BILE DUCTS: Normal caliber. GALLBLADDER: Removed PANCREAS: within normal limits. SPLEEN: Mild splenomegaly. ADRENALS: within normal limits. KIDNEYS: within normal limits. PELVIS: REPRODUCTIVE ORGANS: No pelvic masses. URETERS: within normal limits. BLADDER: within normal limits. PERITONEUM: No ascites or free air, no fluid collection. BOWEL: Postsurgical changes are seen in the rectum and in the right colon. Small bowel and colon are normal in caliber. MESENTERY AND RETROPERITONEUM: No enlarged mesenteric or retroperitoneal lymph nodes. VESSELS: Normal. ABDOMINAL WALL: within normal limits. OSSEOUS STRUCTURES: Mild degenerative changes in the spine without suspicious osseous lesions. IMPRESSION: 1. Stable pulmonary nodules 2. Stable hepatic hypodensities associated with calcifications.
== END 2019-02-03 08:30 | disposition home or self-care (01) ==
LOC: SCSCT 08:29
PROVIDERS: ATTEND Internal Medicine Hematology & Oncology
DX: C20 Malignant neoplasm of rectum (principal); R91.8 Other nonspecific abnormal finding of lung field; K76.89 Other specified diseases of liver
CPT/HCPCS: 71260; 74177; Q9967

== ENCOUNTER 2019-05-02 09:30 | Outpatient (CLI) | payer OTHER ==
--- NOTE | 2019-05-02 12:26 | CT ---
CT OF THE CHEST AND ABDOMEN AND PELVIS: DATE: 05/02/2019. COMPARISON: 02/03/2019. HISTORY: Colon cancer, evaluate metastatic disease within the liver. TECHNIQUE: Axial CT imaging at 5 mm intervals from the thoracic inlet through the pubic symphysis with intraveno us contrast. Coronal and sagittal reformatted imaging obtained. FINDINGS: There is a left Port-A-Cath present. No axillary, mediastinal, or hilar lymphadenopathy. No pneumot horax or pleural fluid. No pericardial or mediastinal fluid. There is a 6 mm nodule within the lateral aspect of the mid portion of the left lung along the course of the inner lobar fissure which has slightly enlarged when compared to 05/06/2018 exam and has defin itely enlarged when compared to 10/13/2017 examination at which time this nodule measured 4 and 3 mm r espectively. There is a nodule within the medial aspect of the left lower lobe on image 40 measuring 8 mm, stable when compared to 02/03/2019 and enlarged when compared to 10/13/2017 at which time it me asured 5 mm. No new left-sided pulmonary parenchymal mass lesion. There is a nodule within the inferior aspect of the right lower lobe on image 65 measuring approximat alessio 8 mm, which has grown from 4 mm on 10/13/2017. On today's examination on the coronal imaging this nodule measures 9 mm in craniocaudal dimension, slightly enlarged when compared to the prior exam. There is a small subpleural nodule noted within the right lower lobe on axial image 54 which has not changed when compared to the prior exam. There is a nodule within the posterior aspect of the right middle lobe measuring approximately 9 mm i n transverse dimension, slightly enlarged when compared to the 02/03/2019 examination at which time i t measured 7 mm. Stable small nodule within the inferior posterior right middle lobe on image 47 not ed measuring approximately 6 mm. No endobronchial lesion is noted on this examination. Review of the osseous structures of the chest demonstrates no acute osseous abnormality. There is no free intraperitoneal air. There is a lobulated hypodense lesion within the left lobe of the liver measuring approximately 1.9 x 2.9 cm, which has increased in size from 1.6 x 2.1 cm on the 02/03/2019 examination. There is a andria tral hypodense lesion within the left lobe of the liver with foci of internal calcification and/or no dular enhancement measuring 2.8 cm in transverse dimension, not significantly changed when compared t o prior imaging. Along the lateral aspect of the liver post-resection site there is multifocal multi lobulated confluent hypodense hepatic parenchymal mass lesions which demonstrate a confluent nature a nd in total measure up to approximately 6.9 cm in AP dimension, 3.5 cm in transverse dimension, and a pproximately 5.9 cm in craniocaudal dimension. This has progressed since the 02/03/2019 examination at which time this confluent area of hypodense masses measured 6.3 x 3.2 x 4.8 cm. There is a stable inferior hypodense lesion measuring 1.5 cm within the liver on image 72, stable. There is stable mild enlargement of the spleen. The pancreas, left adrenal gland, and left kidney appear unremarkable. The right kidney is unremarka ble. There is a small soft tissue nodule in the region of the right adrenal gland, not optimally ass essed on this exam, measuring 1 cm, stable. There is a rectal suture line noted. Lack of oral contrast slightly limits assessment of the bowel. No evidence for bowel obstruction. The vascular structures of the abdomen/pelvis are patent. No retroperitoneal lymphadenopathy. Osseous structures of the abdomen/pelvis demonstrate no acute fi ndings. There is degenerative change involving bilateral hips, right greater than left . There is mu ltilevel lumbar spine degenerative change. Bilateral L5 pars defects are present. No worrisome lyti c or blastic bone lesion seen within the abdomen/pelvis. There is a bowel suture line in the mid rig ht abdomen. IMPRESSION: 1. There are findings suspicious for progression of metastatic disease. Some of the pulmonary nodul es appear to have slightly grown in size when compared to the prior exam. 2. There has also been progression of metastatic disease within the liver. POS: GLORIA
== END 2019-05-02 09:31 | disposition home or self-care (01) ==
LOC: SCSCT 09:30
PROVIDERS: ATTEND Internal Medicine Hematology & Oncology
DX: C18.9 Malignant neoplasm of colon, unspecified (principal); C78.7 Secondary malignant neoplasm of liver and intrahepatic bile duct; R91.8 Other nonspecific abnormal finding of lung field
CPT/HCPCS: 71260; 74177

== ENCOUNTER 2019-05-17 09:36 | Outpatient (CLI) | payer OTHER ==
--- NOTE | 2019-05-17 10:58 | ULT ---
COMPLETE ABDOMEN ULTRASOUND INDICATION: Jaundice with history of metastatic rectal cancer TECHNIQUE: Grayscale, color Doppler and spectral Doppler were obtained of the abdomen. COMPARISON: CT of the chest, abdomen and pelvis with IV contrast dated May 02, 2019 and January 182018 FINDINGS: Overlying bowel gas slightly limits image detail. Liver: The patient's known metastatic lesions are not as well detailed on the current examination due to some image distortion from overlying bowel gas. Patient's known large right hepatic lobe hypodense mass with central calcification is only partially seen measuring approximately 3 x 3 x 3.1 cm where on the CT the lesion measured approximately 6.9 x 3.6 cm. The partially calcified medial left hepatic lobe mass is also not as well detailed as on the comparison T CT where it measures 2.9 x 2.3 x [address] the lesion measured 2.8 x 1.9 cm. The additional hypodense lesions involving the left hepatic lobe are not well seen. Main portal vein: Hepatopedal flow and patent Pancreas: Visualized aspects appeared normal. Gallbladder: Surgically absent Common bile duct:6 mm. Right kidney: The right kidney measured 10.1 x 5.5 x 5.8 cm. No focal renal lesion or hydronephrosis is evident. Left kidney: The left kidney measured 11.4 x 6.0 x 5.9 cm. No focal renal lesion or hydronephrosis is demonstrated. Aorta and IVC: Appeared within normal limits. Spleen: 12.9cm in length. No focal splenic lesion is evident. Free fluid: None. IMPRESSION: 1. Hepatic metastatic disease. This is not as well evaluated as on the recent CT dated May 02. Please reference this examination for details concerning the extent of the hepatic metastatic involvement and lesional sizes. 2. Cholecystectomy. No overt intrahepatic biliary ductal dilatation demonstrated.
== END 2019-05-17 09:37 | disposition home or self-care (01) ==
LOC: ULT 09:36
PROVIDERS: ATTEND Internal Medicine Hematology & Oncology
DX: R17 Unspecified jaundice (principal); C20 Malignant neoplasm of rectum; C78.7 Secondary malignant neoplasm of liver and intrahepatic bile duct; Z90.49 Acquired absence of other specified parts of digestive tract
CPT/HCPCS: 93975

== ENCOUNTER 2019-05-20 14:48 | Outpatient (CLI) | payer OTHER ==
--- NOTE | 2019-05-20 17:37 | MRI ---
MRI OF THE ABDOMEN WITHOUT CONTRAST: 05/20/19 COMPARISON: 05/02/19, 02/03/19. HISTORY: Colon cancer with liver metastasis. TECHNIQUE: Multiplanar and multisequence MRI images are obtained in the abdomen without contrast. FINDINGS: There are abnormal high T2 signal lesions seen in the liver. In the right lobe, there is a 7.5 cm les ion. This involves the edge of the right lobe of the liver where the patient appears to have had a pr ior right hepatic lobectomy. The intrahepatic biliary tree is mildly dilated down to the posterior po rtion of this mass and this mass may be obstructing the intrahepatic biliary tree in this location. T here is also abnormal T2 signal in the left lobe of the liver with a mass demonstrating high T2 signa l measuring 3.7 cm in size in the far left lobe of the liver. Last, there is a high T2 signal lesion in the inferior aspect of the right lobe of the liver measuring 1.9 cm in size. The high T2 signal le sions appear larger than on the prior CT and these likely represent metastatic disease. The common bi le duct is normal in caliber. The pancreatic duct is normal in caliber. There is a small amount of ascites. The kidneys, left adrenal gland and pancreas are unremarkable. Right adrenal gland is difficult to de finitely visualize but no mass is seen above the right kidney. The spleen is enlarged measuring 13.5 cm in length. No abdominal adenopathy is seen. No marrow signal abnormality is present. IMPRESSION: 1. Increasing size of liver lesions likely represent metastatic disease. There appears to be in terval development of intrahepatic biliary dilatation secondary to the posterior aspect of the larges t mass compressing the intrahepatic biliary tree. 2. Mild ascites. 3. Splenomegaly. POS: CET
== END 2019-05-20 14:49 | disposition home or self-care (01) ==
LOC: TBSIIMAG 14:48
PROVIDERS: ATTEND Internal Medicine Hematology & Oncology
DX: C20 Malignant neoplasm of rectum (principal); C78.7 Secondary malignant neoplasm of liver and intrahepatic bile duct; R97.0 Elevated carcinoembryonic antigen [CEA]; R93.7 Abnormal findings on diagnostic imaging of other parts of musculoskeletal system; R17 Unspecified jaundice; K76.9 Liver disease, unspecified; R16.2 Hepatomegaly with splenomegaly, not elsewhere classified; R18.8 Other ascites
CPT/HCPCS: 74181

== ENCOUNTER 2019-08-26 06:50 | Day surgery (SDC) | payer OTHER ==
[2019-08-25 15:00] VITALS: BMI 19.1
[2019-08-26] MEDS ORDERED: Midazolam HCl 2 mg/2 ml Vial ONE (08:08)
[2019-08-26] MEDS ORDERED: Fentanyl 100 MCG/2 ML VIAL ONE (08:09)
[2019-08-26] MEDS ORDERED: cefTRIAXone\\ROCEPHIN 1 GM in Sodium Chloride 0.9% 100 ML IVPB SCH (08:15)
[2019-08-26] MEDS ORDERED: Prevnar 13-Val Conj/PF 0.5 ML SYRINGE IM ONE (09:00)
[2019-08-26 09:36] VITALS: BP 114/78; TEMP 98.1
--- NOTE | 2019-08-26 09:36 | SPC ---
EXAM: [facility] BILIARY DRAINAGE CA PROVIDED CLINICAL HISTORY: 53-year-old male patient with metastatic colon cancer with hepatic metastatic disease and biliary obs truction. Patient has an internal/external biliary drainage catheter in place, and request was made for replacement of the catheter. COMPARISON: None FINDINGS: The procedure including the risks and complications were explained to the patient, and informed conse nt was obtained. Patient was placed on the angiography table in the supine position. The left-sided biliary drainage catheter and surrounding area were meticulously prepped and draped in usual sterile fashion. Conscious sedation was performed during the examination with intravenous administration of fentanyl and Versed. The patient was monitored for approximately 3 minutes without complication. The biliary drainage catheter was cut and exchanged over a 0.035 inch Ticket[employer]um[employer] guidewire for a 6 Frenc h vascular sheath. A cholangiogram was performed. The sheath was exchanged over the guidewire for a new 8 American internal/external biliary drainage catheter. Distal portion of the catheter was position ed in a loop of small bowel with the most proximal sidehole positioned in a left hepatic duct. The catheter was flushed and placed to gravity drainage. Catheter was sutured in place utilizing 2-0 Ethi slick suture material, and a dry sterile dressing was placed. The patient tolerated the procedure well and without immediate complication. Patient was transported to radiology nurses holding area for further monitoring prior to discharge. IMPRESSION: 1. Technically successful replacement of an 8 American internal/external biliary drainage catheter. 2. Endo stent is noted in place. Exact location is difficult to determine based on this exam, and no contrast is seen in the Endo stent after cholangiogram was performed. 3. No significant biliary ductal dilatation is identified on this exam.
== END 2019-08-26 10:40 | disposition home or self-care (01) ==
LOC: SPEC 06:50
PROVIDERS: ATTEND Internal Medicine Hematology & Oncology
PROC: 0F7 Hepatobiliary System and Pancreas, Dilation (ICD-10-PCS; principal; 2019-08-26)
PROC: 0FPB3DZ Removal of Intraluminal Device from Hepatobiliary Duct, Percutaneous Approach (ICD-10-PCS; principal; 2019-08-26)
DX: K83.1 Obstruction of bile duct (principal); C20 Malignant neoplasm of rectum; C78.7 Secondary malignant neoplasm of liver and intrahepatic bile duct; K21.9 Gastro-esophageal reflux disease without esophagitis; Z79.899 Other long term (current) drug therapy
CPT/HCPCS: 47531; 47536; 75984; C1729; J0696; J1642; J2250; J3010; J3490

== ENCOUNTER 2019-09-02 07:00 | Day surgery (SDC) | payer OTHER ==
[2019-09-01 11:49] VITALS: BMI 20.2
[~2019-09-02 07:00] MED LIST: cefTRIAXone\\ROCEPHIN 1 GM in Sodium Chloride 0.9% 100 ML IVPB SCH
[2019-09-02 08:50] VITALS: BP 114/95; TEMP 98.2
--- NOTE | 2019-09-02 09:24 | SPC ---
Percutaneous cholangiogram through existing catheter. HISTORY: Liver metastases with biliary obstruction. Decreasing output of internal/external drain. FINDINGS: After explaining the procedure and answering all questions, a small amount of Isovue contra st was carefully injected through the external portion of the internal/external biliary drain. There was immediate opacification of a nondilated biliary system including the left biliary branches. Contrast immediately opacified the second portion the duodenum. The unopacified internal stent is also seen. A small amount of green liquid was aspirated. Catheter was then flushed with normal saline. Patient tolerated the procedure well and was dismissed in good condition. Fluoroscopy time 0.2 minutes. IMPRESSION : The internal/external biliary drain is functioning normally. Left hepatic lobe biliary system is deco mpressed. The reason for decreasing output to the external portion of the drain is that the internal portion is completely decompressing the system.
[2019-09-02] MEDS ORDERED: Iopamidol 300 61% 50 ML VIAL FS ONE (10:16)
== END 2019-09-02 08:20 | disposition home or self-care (01) ==
LOC: SPEC 07:00
PROVIDERS: ATTEND Internal Medicine Hematology & Oncology
PROC: 0FPB3DZ Removal of Intraluminal Device from Hepatobiliary Duct, Percutaneous Approach (ICD-10-PCS; principal; 2019-09-02)
PROC: 0F793DZ Dilation of Common Bile Duct with Intraluminal Device, Percutaneous Approach (ICD-10-PCS; principal; 2019-09-02)
DX: K83.1 Obstruction of bile duct (principal); C78.7 Secondary malignant neoplasm of liver and intrahepatic bile duct; C20 Malignant neoplasm of rectum; K21.9 Gastro-esophageal reflux disease without esophagitis; M16.11 Unilateral primary osteoarthritis, right hip
CPT/HCPCS: 47531; J0696; J1642; J3490; Q9967

== ENCOUNTER 2019-10-18 09:06 | Outpatient (CLI) | payer OTHER ==
--- NOTE | 2019-10-18 10:39 | CT ---
CT CHEST AND ABDOMEN AND PELVIS WITH IV CONTRAST: DATE: 10/18/2019. PROVIDED CLINICAL HISTORY: Rectal cancer. FINDINGS: Correlation is made with the CT chest, abdomen, and pelvis performed 05/02/2019. The heart, pericardium, and great vessels demonstrate an unchanged CT appearance. There is no eviden ce for thoracic lymph node enlargement. The airway appears patent and of normal caliber. There is n o pleural fluid or pneumothorax apparent. Previously described bilateral pulmonary nodules appear no t significantly changed. There is no evidence for a new nodule. There is interval placement of an internal-external biliary drain. The biliary system appears decomp ressed. Multiple foci of hypodensity involving the subcapsular regions of the liver are redemonstrat ed, without significant interval change apparent. The spleen appears enlarged, measuring approximately 12.8 x 15.4 cm in greatest transverse dimensions and approximately 12.5 cm in craniocaudal dimension. This is more conspicuous than on prior. The pancreas, kidneys, and adrenal glands appear unremarkable. There is no bowel dilatation, inflammatory fat stranding, free fluid, or lymph node enlargement appar ent within the abdomen and pelvis. Postoperative changes are redemonstrated. There are multiple sma ll bowel loops within the pelvis that demonstrate fecalization of the material within them suggesting slow transit. The regional major vascular structures demonstrate a stable CT appearance. The osseous structures demonstrate no concerning lytic or blastic lesions. Bilateral nondisplaced L5 pars defects are demonstrated. IMPRESSION: 1. No significant interval change apparent involving the chest. 2. Interval placement of biliary drainage catheter without evidence for biliary ductal dilatation. 3. No significant interval change involving previously described hepatic metastatic disease. 4. Splenomegaly, increased in conspicuity with respect to prior. POS: ELLIOTT
== END 2019-10-18 09:07 | disposition home or self-care (01) ==
LOC: SCSCT 09:06
PROVIDERS: ATTEND Internal Medicine Hematology & Oncology
DX: C20 Malignant neoplasm of rectum (principal); C78.7 Secondary malignant neoplasm of liver and intrahepatic bile duct; R91.8 Other nonspecific abnormal finding of lung field; R16.1 Splenomegaly, not elsewhere classified; Z96.89 Presence of other specified functional implants
CPT/HCPCS: 71260; 74177

== ENCOUNTER 2020-01-20 09:01 | Outpatient (CLI) | payer OTHER ==
--- NOTE | 2020-01-20 10:26 | CT ---
CT OF THE CHEST, ABDOMEN AND PELVIS WITH IV CONTRAST INDICATION: Rectal cancer with metastatic disease to the lungs and liver COMPARISON: CT of the chest, abdomen and pelvis dated October 18, 2019. FINDINGS: CHEST: Lungs: The pulmonary nodule seen within the lateral segment of the right middle lobe on image 43 of s eries 5 is slightly larger now measuring 11 mm where previously this measured 9 mm. There is a stable 3.2 mm pulmonary nodule within the right middle lobe. There is a stable 6 mm pulmonary nodule in the right middle lobe on image 46 of series 5. The larger pulmonary nodule within the left lower lobe on image 41 of series 5 is slightly larger measuring 9.3 x 8.5 mm were previously measured 8.1 x 8.1 mm. There is an enlarging 7 mm pulmonary nodule left lower lobe image 35 of series 5 that previously measured 5.6 mm. Small subpleural pulmonary nodule within the posterior right lower lobe o n image 51 of series 5 is stable. Pleural space: There is mild left pleural effusion Mediastinum: There is a stable left subclavian chest wall port. No pathologically enlarged lymph node s are evident. Axilla: No pathologically enlarged lymph nodes. ABDOMEN: Liver: There is stable postprocedural change of a partial hepatectomy of the right hepatic lobe. The hypodense mass involving the hepatectomy margin is enlargement measuring 7.3 x 3.3 cm where previously this measured 7.1 x 2.8 cm. The additional hypodense masses within the liver have all slig htly increased in size. Index lesion in the left hepatic lobe on image 57 of series 3 now measures 2.7 x 1.9 cm were previously measured 2.5 x 1.4 cm. There is a percutaneous internal/external biliary chain entering the anterior abdominal wall and the left hepatic lobe projecting into the second stage of the duodenum. The drain is in the expected position. There is no overt intrahepatic biliary ductal dilatation. Gallbladder: Surgically absent Pancreas: Normal. Adrenal glands: Normal. Spleen: The spleen remains enlarged measuring up to 14.5 cm. Kidneys and ureters: Normal. No hydronephrosis. Vasculature: Normal. Lymph nodes:No lymphadenopathy. Free fluid in abdomen:There is worsening free fluid in the abdomen PELVIS: Small and large bowel: There is post procedural change of a proctectomy and colon anal anastomosis. T here is postprocedural change of a partial right hemicolectomy with ileocolonic anastomosis in the right upper quadrant. This is stable to the prior exam. Appendix:Surgically absent Bladder: Normal. Rectal and perirectal soft tissues:Surgically absent Reproductive structures: Normal. Free fluid in pelvis: There is mild/moderate free fluid in pelvis which is new Lymphadenopathy pelvis: No lymphadenopathy is evident. Osseous structures: No suspicious osteolytic or osteoblastic lesion is evident. There are bilateral p ars defects at L5 without spondylolisthesis. There is scattered degenerative and osteoarthritic changes. Soft tissues:There is mild anasarca IMPRESSION: 1. Worsening metastatic disease of the lungs and liver 2. Mild volume overload with a small left pleural effusion, mild ascites and anasarca.
== END 2020-01-20 09:02 | disposition home or self-care (01) ==
LOC: SCSCT 09:01
PROVIDERS: ATTEND Internal Medicine Hematology & Oncology
DX: C20 Malignant neoplasm of rectum (principal); C78.7 Secondary malignant neoplasm of liver and intrahepatic bile duct; J90 Pleural effusion, not elsewhere classified; R18.8 Other ascites; R60.1 Generalized edema; C78.02 Secondary malignant neoplasm of left lung; C78.01 Secondary malignant neoplasm of right lung
CPT/HCPCS: 71260; 74177

== ENCOUNTER 2020-02-22 07:03 | Day surgery (SDC) | payer OTHER ==
[2020-02-22] MEDS ORDERED: Sodium Chloride 0.9% 10 ML ONE (07:43)
[2020-02-22] MEDS ORDERED: Fentanyl 100 MCG/2 ML VIAL ONE (08:12)
[2020-02-22] MEDS ORDERED: Midazolam HCl 2 mg/2 ml Vial ONE (08:12)
[2020-02-22] MEDS ORDERED: Sodium Bicarbonate 2.5 MEQ/5 ML VIAL ONE (08:13)
[2020-02-22] MEDS ORDERED: Lidocaine 1% PF 5 ML VIAL ONE (08:13)
[2020-02-22] MEDS ORDERED: Sodium Chloride 0.9% 20 ML ONE (08:13)
[2020-02-22] MEDS ORDERED: cefTRIAXone\\ROCEPHIN 1 GM in Sodium Chloride 0.9% 100 ML IVPB SCH (08:15)
--- NOTE | 2020-02-22 09:28 | SPC ---
Biliary drainage catheter exchange fluoroscopic guided Conscious sedation: At least 20 minutes spent with the patient for conscious sedation. FINDINGS: After explaining the procedure and answering all questions, the external portion of the int ernal/external biliary drain was prepped and draped in usual sterile fashion. During the procedure, 1 g of Rocephin and 50 mcg of fentanyl were administered. A 0.035 Bentson wire was carefully advanced through the internal/external biliary drain into the smal l bowel in the right upper quadrant. The old catheter was carefully removed. A 6 Finnish vascular sheath was placed into the left liver lobe biliary system over the wire. Injection of a small amount of contrast shows no filling defects within the partially visualized left liver lobe biliary system. Contrast passes alongside the wire and previously indwelling biliary stent, into the small natty wel in the right upper quadrant. A new 8 Finnish locking loop internal/external biliary drain was carefully placed over the wire. An Am suzanne wire was exchanged to better positioning the distal coil within the small bowel adjacent to the distal end of the biliary stent. Proximal sidehole was in the central left biliary system. Small amount of contrast was injected to confirm good position. The catheter was secured internally w ith the retention loop and externally with 0 silk suture. Catheter was left draining to gravity. Patient tolerated the procedure well and was returned in good condition. Fluoroscopy time 4 minutes. IMPRESSION : Technically successful exchange of internal/external left hepatic biliary drain, in good position. Wi th drain output temporarily, the bile duct was shown to be patent around the wire and internal biliary stent.
[2020-02-23 07:53] VITALS: BP 157/100; TEMP 98.1
--- NOTE | 2020-02-23 13:10 | SPC ---
Biliary drainage catheter exchange fluoroscopic guided Conscious sedation: At least 20 minutes spent with the patient for conscious sedation. FINDINGS: After explaining the procedure and answering all questions, the external portion of the int ernal/external biliary drain was prepped and draped in usual sterile fashion. During the procedure, 1 g of Rocephin and 50 mcg of fentanyl were administered. A 0.035 Bentson wire was carefully advanced through the internal/external biliary drain into the smal l bowel in the right upper quadrant. The old catheter was carefully removed. A 6 [place] vascular sheath was placed into the left liver lobe biliary system over the wire. Injection of a small amount of contrast shows no filling defects within the partially visualized left liver lobe biliary system. Contrast passes alongside the wire and previously indwelling biliary stent, into the small natty wel in the right upper quadrant. A new 8 [place] locking loop internal/external biliary drain was carefully placed over the wire. An Am suzanne wire was exchanged to better positioning the distal coil within the small bowel adjacent to the distal end of the biliary stent. Proximal sidehole was in the central left biliary system. Small amount of contrast was injected to confirm good position. The catheter was secured internally w ith the retention loop and externally with 0 silk suture. Catheter was left draining to gravity. Patient tolerated the procedure well and was returned in good condition. Fluoroscopy time 4 minutes. IMPRESSION : Technically successful exchange of internal/external left hepatic biliary drain, in good position. Wi th drain out temporarily, the bile duct was shown to be patent around the wire and internal biliary stent. Transcribed Date/Time: 02/23/2020 1:10 PM
--- NOTE | 2020-02-23 13:10 | SPC ---
Biliary drainage catheter exchange fluoroscopic guided Conscious sedation: At least 20 minutes spent with the patient for conscious sedation. FINDINGS: After explaining the procedure and answering all questions, the external portion of the int ernal/external biliary drain was prepped and draped in usual sterile fashion. During the procedure, 1 g of Rocephin and 50 mcg of fentanyl were administered. A 0.035 Bentson wire was carefully advanced through the internal/external biliary drain into the smal l bowel in the right upper quadrant. The old catheter was carefully removed. A 6 Angolan vascular sheath was placed into the left liver lobe biliary system over the wire. Injection of a small amount of contrast shows no filling defects within the partially visualized left liver lobe biliary system. Contrast passes alongside the wire and previously indwelling biliary stent, into the small natty wel in the right upper quadrant. A new 8 Angolan locking loop internal/external biliary drain was carefully placed over the wire. An Am suzanne wire was exchanged to better positioning the distal coil within the small bowel adjacent to the distal end of the biliary stent. Proximal sidehole was in the central left biliary system. Small amount of contrast was injected to confirm good position. The catheter was secured internally w ith the retention loop and externally with 0 silk suture. Catheter was left draining to gravity. Patient tolerated the procedure well and was returned in good condition. Fluoroscopy time 4 minutes. IMPRESSION : Technically successful exchange of internal/external left hepatic biliary drain, in good position. Wi th drain out temporarily, the bile duct was shown to be patent around the wire and internal biliary stent. Transcribed Date/Time: 02/23/2020 1:09 PM
== END 2020-02-22 09:40 | disposition home or self-care (01) ==
LOC: SPEC 07:03
PROVIDERS: ATTEND Internal Medicine Hematology & Oncology
PROC: 0F793DZ Dilation of Common Bile Duct with Intraluminal Device, Percutaneous Approach (ICD-10-PCS; principal; 2020-02-22)
PROC: 0FPB3DZ Removal of Intraluminal Device from Hepatobiliary Duct, Percutaneous Approach (ICD-10-PCS; principal; 2020-02-22)
DX: K83.1 Obstruction of bile duct (principal); C20 Malignant neoplasm of rectum; C78.7 Secondary malignant neoplasm of liver and intrahepatic bile duct; Z79.899 Other long term (current) drug therapy
CPT/HCPCS: 47531; 47532; 47536; C1729; J0696; J1642; J2250; J3010; J3490

== ENCOUNTER 2020-05-10 06:48 | Day surgery (SDC) | payer OTHER ==
[2020-05-08 12:08] VITALS: BMI 22.6
[~2020-05-10 06:48] MED LIST changes: +FLU VACC QS2020-21(6MOS UP)/PF 60 MCG/0.5 ML SYRINGE IM ONE; -cefTRIAXone\\ROCEPHIN 1 GM in Sodium Chloride 0.9% 100 ML IVPB SCH
[2020-05-10] MEDS ORDERED: cefTRIAXone\\ROCEPHIN 1 GM in Sodium Chloride 0.9% 100 ML IVPB SCH (07:45)
[2020-05-10] MEDS ORDERED: Sodium Chloride 0.9% 1,000 ML IV SCH (07:45)
[2020-05-10] MEDS ORDERED: Fentanyl 100 MCG/2 ML VIAL ONE (07:50)
[2020-05-10 08:42] VITALS: BP 130/81; TEMP 98.3
--- NOTE | 2020-05-10 08:45 | SPC ---
Biliary drainage catheter exchange, fluoroscopic guided Conscious sedation: At least 20 minutes spent with the patient for conscious sedation. FINDINGS: After The procedure and answering all questions, the external portion of the internal/external biliary drai n was prepped and draped in usual sterile fashion. During the procedure, 1 g of Rocephin and 75 mcg of fentanyl were administered. A 0.035 Bentson wire was carefully advanced through the drain into the duodenum to hold position. The old catheter was removed. A 6 [place] vascular sheath was placed into the left liver biliary system over the wire. Injection of a small amount of contrast shows no filling defects within the partially visualized left biliary system. Contrast passed immediately alongside the wire and the previously indwelling biliary stent, into the small bowel. Sheath was removed. A new 8 [place] locking loop internal/external biliary drain was carefully placed over the wire. Proximal sidehole left in the left biliary system. Small amount of contrast injected to confirm position. Catheter was secured internally with retention loop and externally with 0 silk suture and buffered 1% lidocaine. Catheter was left draining to gravity. Patient tolerated the procedure well and was returned in unchanged condition. Fluoroscopy time 2.8 minutes. IMPRESSION : Technically successful exchange of internal/external left hepatic biliary drain, in good position. With drain temporarily removed, the common duct was shown to be patent around the wire and previously indwelling internal biliary stent, so that the external drain may not be necessary.
[2020-05-10] MEDS ORDERED: Iopamidol 300 61% 50 ML VIAL FS ONE (14:48)
== END 2020-05-10 09:15 | disposition home or self-care (01) ==
LOC: SPEC 06:48
PROVIDERS: ATTEND Internal Medicine Hematology & Oncology
PROC: 0FPB7DZ Removal of Intraluminal Device from Hepatobiliary Duct, Via Natural or Artificial Opening (ICD-10-PCS; principal; 2020-05-10)
PROC: 0F7 Hepatobiliary System and Pancreas, Dilation (ICD-10-PCS; principal; 2020-05-10)
DX: K83.1 Obstruction of bile duct (principal); C20 Malignant neoplasm of rectum; M16.11 Unilateral primary osteoarthritis, right hip; Z79.899 Other long term (current) drug therapy
CPT/HCPCS: 47531; 47536; 75984; C1729; J0696; J1642; J3010; J3490; Q9967

== ENCOUNTER 2020-08-02 06:56 | Day surgery (SDC) | payer OTHER ==
[2020-08-01 11:19] VITALS: BMI 19.6
[2020-08-02] MEDS ORDERED: Sodium Chloride 0.9% 10 ML ONE ×2 (07:07→07:16)
[2020-08-02] MEDS ORDERED: Fentanyl 100 MCG/2 ML VIAL ONE (07:46)
[2020-08-02] MEDS ORDERED: cefTRIAXone\\ROCEPHIN 1 GM in Sodium Chloride 0.9% 100 ML IVPB SCH (08:00)
[2020-08-02 12:13] VITALS: BP 113/81; TEMP 98.4
[2020-08-02] MEDS ORDERED: Iopamidol 300 61% 50 ML VIAL FS ONE (13:15)
== END 2020-08-02 09:30 | disposition home or self-care (01) ==
LOC: SPEC 06:56
PROVIDERS: ATTEND Internal Medicine Hematology & Oncology
PROC: 0FPB3DZ Removal of Intraluminal Device from Hepatobiliary Duct, Percutaneous Approach (ICD-10-PCS; principal; 2020-08-02)
PROC: 0F793DZ Dilation of Common Bile Duct with Intraluminal Device, Percutaneous Approach (ICD-10-PCS; principal; 2020-08-02)
DX: K83.1 Obstruction of bile duct (principal); C20 Malignant neoplasm of rectum; K21.9 Gastro-esophageal reflux disease without esophagitis; M16.11 Unilateral primary osteoarthritis, right hip; Z79.899 Other long term (current) drug therapy
CPT/HCPCS: 47531; 47536; 75984; C1729; J0696; J1642; J3010; J3490; Q9967